=== PATIENT | male | born 2000 | race African-American/Black ===

== ENCOUNTER 2018-10-01 18:45 | Emergency (ER) | payer OTHER ==
[~2018-10-01] VITALS: Ht 177.8 cm; Wt 86.2 kg
[2018-10-01 18:50] VITALS: BP 140/64
[2018-10-01] MEDS ORDERED: FLUORESCEIN 1MG EYE STRIP. ONE (18:55)
[2018-10-01] MEDS ORDERED: TETRACAINE 0.5% OPHTH SOLUTION 4ML BOTTLE. ONE (18:55)
[2018-10-01] MEDS ORDERED: FLUORESCEIN 1MG EYE STRIP. OD ONE (19:15)
[2018-10-01] MEDS ORDERED: TETRACAINE 0.5% OPHTH SOLUTION 4ML BOTTLE. OD ONE (19:15)
--- NOTE | 2018-10-01 19:30 | PHYS DOC ---
Past History Past Medical History: No Pertinent History Past Surgical History: No Surgical History Alcohol Use: None Drug Use: None Adult General Chief Complaint Chief Complaint: EYE PROBLEMS HPI HPI 17-year-old male presents with an irritated right eye. The patient believes he got some foreign object in his eye earlier today. He is not sure what it is. She tried to wash his eye out and felt a little bit better, but he has still had some irritation and has been rubbing it. There is still a persistent feeling that something might be in there so he decided he should have it evaluated. Patient denies any other injuries or complaints. Review of Systems Review of Systems Constitutional: Denies fever or chills [] Eyes: Right eye irritation[] HENT: Denies nasal congestion or sore throat [] Respiratory: Denies cough or shortness of breath [] Cardiovascular: No additional information not addressed in HPI [] GI: Denies abdominal pain, nausea, vomiting, bloody stools or diarrhea [] : Denies dysuria or hematuria [] Musculoskeletal: Denies back pain or joint pain [] Integument: Denies rash or skin lesions [] Neurologic: Denies headache, focal weakness or sensory changes [] Endocrine: Denies polyuria or polydipsia [] All other systems were reviewed and found to be within normal limits, except as documented in this note. Current Medications Current Medications Current Medications Medications (Trade) Dose Ordered Sig/Fauzia Start Time Stop Time Status Last Admin Dose Admin Fluorescein Sodium (Ful-Sirena 1mg) 1 strip 1X ONCE 10/01/18 19:15 10/01/18 19:16 DC 10/01/18 19:18 1 STRIP Tetracaine HCl (Tetracaine) 1 drop 1X ONCE 10/01/18 19:15 10/01/18 19:16 DC 10/01/18 19:18 1 DROP Allergies Allergies Allergies Coded Allergies Type Severity Reaction Last Updated Verified No Known Drug Allergies 10/01/18 No Physical Exam Physical Exam Constitutional: Well developed, well nourished, no acute distress, non-toxic appearance. [] HENT: Normocephalic, atraumatic, bilateral external ears normal, oropharynx moist, no oral exudates, nose normal. [] Eyes: PERRLA, EOMI, conjunctiva normal, no discharge. Right upper eyelid mildly edematous, no erythema or warmth. Fluoresceins and wood's lamp exam does not show any corneal abrasions or areas of increased uptake.[] Neck: Normal range of motion, no tenderness, supple, no stridor. [] Cardiovascular:Heart rate regular rhythm, no murmur [] Lungs & Thorax: Bilateral breath sounds clear to auscultation [] Abdomen: Bowel sounds normal, soft, no tenderness, no masses, no pulsatile masses. [] Skin: Warm, dry, no erythema, no rash. [] Back: No tenderness, no CVA tenderness. [] Extremities: No tenderness, no cyanosis, no clubbing, ROM intact, no edema. [] Neurologic: Alert and oriented X 3, normal motor function, normal sensory function, no focal deficits noted. [] Psychologic: Affect normal, judgement normal, mood normal. [] Current Patient Data Vital Signs Vital Signs Date Time Temp Pulse Resp B/P (MAP) Pulse Ox O2 Delivery O2 Flow Rate FiO2 10/01/18 18:50 98.2 75 16 98 Room Air EKG EKG [] Radiology/Procedures Radiology/Procedures [] Course & Med Decision Making Course & Med Decision Making Pertinent Labs and Imaging studies reviewed. (See chart for details) I was able to numb the patient's eye with tetracaine eyedrops and perform a fluoresceins wood lamp exam. The patient does not appear to have a foreign body in his eye currently. He also does not have a corneal abrasion. I inverted his upper eyelid and also did not find any foreign bodies or other second findings. I think he just has post foreign body irritation. He is stable for discharge at this time. [] Dragon Disclaimer Dragon Disclaimer This electronic medical record was generated, in whole or in part, using a voice recognition dictation system. Departure Departure: Impression: Primary Impression: Acute right eye pain Disposition: HOME, SELF-CARE Condition: STABLE Referrals: MADI TRAN PA-C (PCP) Patient Instructions: Eye - Foreign Body, [id number] GAL BLANK DO Oct 01, 2018 19:30
== END 2018-10-01 19:30 | disposition home or self-care (01) ==
LOC: ER 18:45
DX: H57.11 Ocular pain, right eye (principal)
CPT/HCPCS: 99283